=== PATIENT | female | born 1990 | race Caucasian/White ===

== ENCOUNTER 2020-08-16 13:25 | Emergency (ER) | payer SELFPAY ==
[~2020-08-16] VITALS: Ht 170.2 cm; Wt 72.6 kg
[2020-08-16] MEDS ORDERED: KETOROLAC TROMETHAMINE 30 MG/ML VIAL IV STA (13:41)
[2020-08-16] MEDS ORDERED: DESONIDE5 GM (13:45)
[2020-08-16] MEDS ORDERED: METOCLOPRAMIDE HCL 10 MG/2ML VIAL IV ONE (13:45)
[2020-08-16] MEDS ORDERED: MIDODRINE HCL5 MG PO (13:45)
[2020-08-16] MEDS ORDERED: INDERAL10 MG PO (13:45)
[2020-08-16] MEDS ORDERED: CETIRIZINE HCL10 MG PO (13:45)
[2020-08-16] MEDS ORDERED: BELBUCA75 MCG PO (13:45)
[2020-08-16] MEDS ORDERED: BENADRYL25 M1 PO (13:45)
[2020-08-16] MEDS ORDERED: MESTINON60 MG PO (13:45)
[2020-08-16] MEDS ORDERED: SODIUM CHLORIDE 0.9% 1000ML 1,000 ML IV SCH (13:45)
[2020-08-16] MEDS ORDERED: VENLAFAXINE HCL75 MG PO (13:45)
[2020-08-16] MEDS ORDERED: MONTELUKAST SOD10 MG PO (13:45)
[2020-08-16] MEDS ORDERED: DIPHENHYDRAMINE HCL 25 MG CAP PO ONE (13:45)
[2020-08-16] MEDS ORDERED: XIIDRA1 EACH PO (13:45)
[2020-08-16] MEDS ORDERED: FAMOTIDINE20 MG PO (13:45)
[2020-08-16 13:55] LABS: BASOPHILS % 0.6 % (0.0-1.0); EOSINOPHILS # (AUTO) 0.1 (0.0-0.4); EOSINOPHILS % 1.9 % (0.0-6.0); HEMATOCRIT 37.2 % (34.2-44.1); HEMOGLOBIN 12.4 g/dL (12.0-16.0); LYMPHOCYTES # (AUTO) 2.6 (1.0-3.2); MEAN CORPUSCULAR HEMOGLOBIN 31.7 pg (28-32); MEAN CORPUSCULAR HGB CONC 33.3 g/dL (31-35); MEAN CORPUSCULAR VOLUME 95.1 fL (81-99); MONOCYTES # (AUTO) 0.8 (0.2-0.8); MONOCYTES % 11.5 % (4.4-11.3); NEUTROPHILS # (AUTO) 3.6 (2.1-6.9); NEUTROPHILS % 49.7 % (38.7-80.0); PLATELET COUNT 286 x10e3/uL (140-360); RED BLOOD COUNT 3.91 x10e6/uL (3.6-5.1); RED CELL DISTRIBUTION WIDTH 12.1 % (11.7-14.4)
[2020-08-16] MEDS ORDERED: SODIUM CHLORIDE 0.9% 100 ML ONE (13:55)
[2020-08-16] MEDS ORDERED: IOPAMIDOL 370 MG/ML 200 ML INFUS..BTL INJ ONE (13:55)
[2020-08-16 14:16] LABS: ALANINE AMINOTRANSFERASE 48 IU/L (0-55); ALBUMIN 4.2 g/dL (3.5-5.0); ALBUMIN/GLOBULIN RATIO 1.3 (0.8-2.0); ALKALINE PHOSPHATASE 77 IU/L (40-150); ANION GAP 13.8 mmol/L (8-16); BLOOD UREA NITROGEN 9 mg/dL (7-26); BUN/CREATININE RATIO 12 (6-25); CARBON DIOXIDE 24 mmol/L (22-29); CHLORIDE 105 mmol/L (98-107); CREATININE, SERUM 0.75 mg/dL (0.57-1.11); EST GLOMERULAR FILTRATION RATE > 60 ML/MIN (60-); GLUCOSE 74 mg/dL (74-118); POTASSIUM 3.8 mmol/L (3.5-5.1); SODIUM 139 mmol/L (136-145)
[2020-08-16 14:25] LABS: AMPHETAMINES SCREEN,URINE NEGATIVE (NEGATIVE); BENZODIAZEPINES SCREEN,URINE NEGATIVE (NEGATIVE); PHENCYCLIDINE SCREEN,URINE NEGATIVE (NEGATIVE)
[2020-08-16 14:31] LABS: CLARITY,URINE SL CLOUDY (CLEAR); COLOR,URINE YELLOW (YELLOW); KETONES,URINE NEGATIVE (NEGATIVE); LEUKOCYTE ESTERASE ,URINE NEGATIVE (NEGATIVE); NITRITE,URINE NEGATIVE (NEGATIVE)
[2020-08-16 14:43] LABS: BACTERIA,URINE FEW /HPF; EPITHELIAL CELLS,URINE FEW /LPF; RBC,URINE 0-5 /HPF (0-5)
[2020-08-16 14:44] LABS: URINE UROBILINOGEN 0.2 mg/dL (0.2 - 1)
[2020-08-16 14:46] LABS: PROTEIN,URINE DIPSTICK NEGATIVE (NEGATIVE)
[2020-08-16 15:51] VITALS: BP 101/81
== END 2020-08-16 17:24 | disposition home or self-care (01) ==
LOC: ER 14:00
DX: R07.9 Chest pain, unspecified (principal); R06.02 Shortness of breath; R51.9 Headache, unspecified; Q79.60 Ehlers-Danlos syndrome, unspecified; Z20.822 Contact with and (suspected) exposure to COVID-19
CPT/HCPCS: 36415; 51700; 70496; 70498; 71275; 80053; 80307; 81001; 82948; 84484; 85025; 93005; 99284; J1885; J2765; J7030; J7050; Q9967; U0002